=== PATIENT | male | born 1995 | race Caucasian/White ===

== ENCOUNTER 2016-11-13 15:49 | Emergency (ER) | payer BC, OTHER ==
[~2016-11-13] VITALS: Ht 175.3 cm; Wt 85.3 kg
[2016-11-13 15:54] VITALS: BP 146/82; PULSE 100; TEMP 36.7; O2SAT 98; Ht 175.3 cm; Wt 85.3 kg
[2016-11-13] MEDS ORDERED: NIAC500T11 PO (16:13)
[2016-11-13] MEDS ORDERED: BUSP-8 PO (16:17)
[2016-11-13] MEDS ORDERED: CYCL10TA6 PO (16:17)
--- NOTE | 2016-11-13 16:17 | EMERGENCY ROOM VISIT NOTE ---
ED Visit Note First contact with patient: 16:00 CHIEF COMPLAINT: Medication refill request HISTORY OF PRESENT ILLNESS: This 21-year-old male patient presents to the emergency department requesting a refill of Valium 5 mg twice a day. The patient reports a history of anxiety, and states 2 years ago, he was treated with Valium. He states he lost his health insurance, so was unable to afford the medication. Patient states he has been off of this medication for 2 years. He states then that time, he has just dealt with his anxiety. He states for the past 2 months, however he has been experiencing increased anxiety, causing painful spasms in the middle of his back. Patient states he recently got health insurance back, so presents to the emergency department to get back on his Valium. Patient sees Dr. Ford is his PCP and was treated by Dr. Nation for his psychiatric conditions. He states he has been experiencing a significant amount of stress, and reports recently being current on his mom's house and losing custody of his son. The patient is not suicidal or homicidal. He denies injury of his back. The patient denies any other complaints. REVIEW OF SYSTEMS: A 6 system review of systems was completed with positives and pertinent negatives listed in the HPI. ALLERGIES: Acetaminophen, Cefadroxil MEDICATIONS: None PMH: Anxiety, depression, ADHD, ADD SOCIAL HISTORY: Patient lives locally with his family. He admits to smoking one half pack cigarettes per day, he denies alcohol or drug use. PHYSICAL EXAM: VITALS: Vitals are noted on the nurse's note and reviewed by myself. Vital signs stable. GENERAL: 21-year-old male, in no acute distress, nondiaphoretic, well-developed well-nourished. SKIN: The skin was without rashes, erythema, edema, or bruising. HEAD: Normocephalic atraumatic. NECK: Supple without nuchal rigidity. No cervical spine tenderness. No paraspinous muscle tenderness. No lymphadenopathy. HEART: Regular rate and rhythm without murmurs gallops or rubs. LUNGS: Clear to auscultation bilaterally without wheezes, rales or rhonchi. MUSCULOSKELETAL: No muscle atrophy, erythema, or edema noted of the back. There no tenderness over the lumbar spinous processes. There is no tenderness over the paraspinous muscles in the low back. There is very minimal tenderness over the thoracic spine or paraspinous muscles. There are no palpable muscle spasms present. The patient is able to ambulate and move around without difficulty. Negative straight leg raise test. NEURO: Patient was alert and oriented to person place and time. Normal sensation to light and sharp touch. Deep tendon reflexes 2+ in the lower extremities. Dorsalis pedis pulse 2+ bilaterally. Heel and toe walking is normal. EMERGENCY DEPARTMENT COURSE: The patient was seen and evaluated as above. I discussed with the patient proper treatment of chronic conditions. I discussed with him symptomatic treatment at this time, and patient is in agreement with treatment at this time. Pt. was discharged home in good condition. DIAGNOSIS: Anxiety, Muscle spasms DIFFERENTIAL DIAGNOSIS: musculoskeletal strain, panic attack, nephrolithiasis, and others. DISCHARGE INSTRUCTIONS & TREATMENT: Take buspirone as directed twice daily. You may use Flexeril as needed up to 3 times daily for muscle symptoms. He should not take this medication drive, as it may cause drowsiness. Be sure to follow up with your primary care provider and/or psychiatrist and 2- 3 days for further evaluation and management of your chronic condition. Return to the emergency department if you experience suicidal or homicidal ideations, the desire to hurt yourself, intractable muscle spasms, increased anxiety causing difficulty functioning, or other associated symptoms. Problem List Medical Problems: (1) Tachycardia Status: Chronic Current/Historical Medications Scheduled Buspirone Hcl (Buspirone Hcl), 1 TAB PO BID Niacin (Niacin), 500 MG PO BID Scheduled PRN Cyclobenzaprine Hcl (Flexeril), 10 MG PO TID PRN for Muscle Spasms Allergies Coded Allergies: Acetaminophen (Verified Allergy, Severe, Throat swelling, 11/13/16) Cefadroxil (Unverified Adverse Reaction, Unknown, UNKNOWN, 11/13/16) Vital Signs Date Time Temp Pulse Resp B/P (MAP) Pulse Ox O2 Delivery O2 Flow Rate FiO2 11/13/16 15:54 36.7 100 18 146/82 98 Room Air Departure Information Impression Primary Impression: Anxiety Additional Impression: Muscle spasm Dispostion Home / Self-Care Condition GOOD Prescriptions Cyclobenzaprine Hcl (FLEXERIL) 10 Mg Tab 10 MG PO TID Y for Muscle Spasms, #15 TAB Prov: Theodora Jaimes, DANIELE 11/13/16 Buspirone Hcl (BUSPIRONE HCL) 10 Mg Tab 1 TAB PO BID for 30 Days, #60 TAB Prov: Theodora Jaimes, DANIELE 11/13/16 Referrals No Doctor, Assigned (PCP) Patient Instructions Anxiety Disorder, My [facility] Additional Instructions Take buspirone as directed twice daily. You may use Flexeril as needed up to 3 times daily for muscle symptoms. He should not take this medication drive, as it may cause drowsiness. Be sure to follow up with your primary care provider and/or psychiatrist and 2- 3 days for further evaluation and management of your chronic condition. Return to the emergency department if you experience suicidal or homicidal ideations, the desire to hurt yourself, intractable muscle spasms, increased anxiety causing difficulty functioning, or other associated symptoms. Problem Qualifiers
== END 2016-11-13 16:28 | disposition home or self-care (01) ==
LOC: C.EDB 15:50 → C.EDD 16:28
DX: F41.9 Anxiety disorder, unspecified (principal); M62.838 Other muscle spasm; F90.9 Attention-deficit hyperactivity disorder, unspecified type; F32.9 Major depressive disorder, single episode, unspecified; F17.200 Nicotine dependence, unspecified, uncomplicated

== ENCOUNTER 2016-12-15 18:06 | Emergency (ER) | payer OTHER ==
[~2016-12-15 18:06] MED LIST: NIAC500T11 PO
[2016-12-15 18:13] VITALS: Ht 172.7 cm
[2016-12-15 18:30] LABS: MANUAL MICROSCOPIC REQUIRED? NO; REVIEW REQ? NO; URINE APPEARANCE CLEAR (CLEAR); URINE BILIRUBIN NEG (NEG); URINE COLOR DK YELLOW; URINE NITRITE NEG (NEG); URINE SPECIFIC GRAVITY 1.025 (1.000-1.030); UROBILINOGEN NEG (NEG); ZZUR CULT IF INDIC CLEAN CATCH NO
[2016-12-15 18:42] LABS: BASO % 0.1 %; BASO ABS # 0.01 K/uL (0-0.2); COMPLETE YES; EOS % 0.3 %; HEMATOCRIT 42.9 % (42-52); IG% 0.2 %; LYMPH % 16.6 %; LYMPH ABS # 1.68 K/uL (1.2-3.4); MEAN CELL VOLUME 86.1 fL (80-100); MEAN CORPUSCULAR HEMOGLOBIN 29.5 pg (25-34); MEAN CORPUSCULAR HGB CONC 34.3 g/dl (32-36); MEAN PLATELET VOLUME 10.3 fL (7.4-10.4); MONO % 4.6 %; NEUT % 78.2 %; PLATELET COUNT 245 K/uL (130-400); RED BLOOD COUNT 4.98 M/uL (4.7-6.1); WHITE BLOOD COUNT 10.11 K/uL (4.8-10.8)
[2016-12-15 19:03] LABS: ALT/SGPT 24 U/L (12-78); AST/SGOT 12 U/L (15-37); BLOOD UREA NITROGEN 19 mg/dl (7-18); BUN/CREATININE RATIO 19.2 (10-20); CALCIUM 9.9 mg/dl (8.5-10.1); CARBON DIOXIDE 25 mmol/L (21-32); CHLORIDE 109 mmol/L (98-107); GLUCOSE 98 mg/dl (70-99); SODIUM 142 mmol/L (136-145)
[2016-12-15 19:13] LABS: BENZODIAZEPINE, URINE NEG (NEG); COCAINE,URINE NEG (NEG); PHENCYCLIDINE, URINE NEG (NEG)
[2016-12-15 19:14] LABS: ALB/GLOB RATIO 1.5 (0.9-2); ALKALINE PHOSPHATASE 36 U/L (45-117); THYROID STIMULATING HORMONE 0.619 uIu/ml (0.300-4.500)
[2016-12-15 19:16] LABS: ACETAMINOPHEN < 2 ug/ml (10-30)
--- NOTE | 2016-12-15 19:30 | EMERGENCY ROOM VISIT NOTE ---
History Report prepared by Denaibronald: Michael Molina Under the Supervision of: Dr. Robert Gay M.D. First contact with patient: 18:09 Chief Complaint: MENTAL HEALTH EVALUATION Stated Complaint: MENTAL HEALTH EVAL History of Present Illness The patient is a 21 year old male who presents to the Emergency Room by police with complaints of constant suicidal ideation beginning four days ago. He has a history of separation anxiety and depression, and states that he is currently in the process of getting prescribed medications. He states that he attempted to hurt himself two years ago, but has never tried to kill himself. Per lining caser, the police was called for the patient after he made suicidal statements to his mother. They state that the patient had a plan to kill himself by overdose. The patient states that he feels depressed because his child's mother left him for one of her ex-boyfriends last week. He denies any recent drug use. He has no weapons in his house. The patient states that he had no plan to hurt himself today. Source of History: patient Onset: Four days ago Quality: other (suicidal ideation) Timing: constant Review of Systems See HPI for pertinent positives & negatives. A total of 10 systems reviewed and were otherwise negative. Past Medical & Surgical Medical Problems: (1) Abrasion of hand, right (2) Contusion of right hand (3) Dental caries (4) Depression (5) Fever (6) Foot pain (7) Separation anxiety (8) Sore throat (9) Tachycardia Family History No pertinent family history stated. Social History Smoking Status: Unknown if Ever Smoked Alcohol Use: none Drug Use: none Marital Status: single Housing Status: lives with family Occupation Status: student Current/Historical Medications No Active Prescriptions or Reported Meds Allergies Coded Allergies: Acetaminophen (Verified Allergy, Severe, Throat swelling, 12/15/16) Cefadroxil (Unverified Adverse Reaction, Unknown, UNKNOWN, 12/15/16) Physical Exam Vital Signs Date Time Temp Pulse Resp B/P (MAP) Pulse Ox O2 Delivery O2 Flow Rate FiO2 12/16/16 01:09 36.6 98 18 124/79 96 12/15/16 22:01 98 18 124/79 96 Room Air 12/15/16 18:13 36.6 104 22 142/83 95 Room Air Physical Exam PSYCH: Admits depression. Admits suicidal statements, but denies suicidal plan. GENERAL: Patient is anxious appearing and periodically crying. HEENT: No acute trauma, normocephalic atraumatic, mucous membranes moist, no nasal congestion, no scleral icterus. NECK: No stridor, no adenopathy, no meningismus, trachea is midline. LUNGS: No dyspnea. Clear to auscultation and equal bilaterally. No wheeze, no rhonchi. HEART: Regular rate and rhythm. No murmurs, rubs, gallops appreciated. ABDOMEN: Soft, nontender, bowel sounds positive, no masses appreciated, no peritonitis. BACK: No midline tenderness, no CVA tenderness EXTREMITIES: Normal motion all extremities, no cyanosis, no edema. NEUROLOGIC: Alert and oriented, no acute motor or sensory deficits, no focal weakness, cranial nerves grossly intact. SKIN: No rash, no jaundice, no diaphoresis. Medical Decision & Procedures Laboratory Results 12/15/16 18:28 Red Blood Count 4.98, Mean Corpuscular Volume 86.1, Mean Corpuscular Hemoglobin 29.5, Mean Corpuscular Hemoglobin Concent 34.3, Mean Platelet Volume 10.3, Neutrophils (%) (Auto) 78.2, Lymphocytes (%) (Auto) 16.6, Monocytes (%) (Auto) 4.6, Eosinophils (%) (Auto) 0.3, Basophils (%) (Auto) 0.1, Neutrophils # (Auto) 7.90, Lymphocytes # (Auto) 1.68, Monocytes # (Auto) 0.47, Eosinophils # (Auto) 0.03, Basophils # (Auto) 0.01 12/15/16 18:28 Test 12/15/16 18:10 12/15/16 18:28 Urine Color DK YELLOW Urine Appearance CLEAR (CLEAR) Urine pH 6.0 (4.5-7.5) Urine Specific [place] 1.025 (1.000-1.030) Urine Protein NEG (NEG) Urine Glucose (UA) NEG (NEG) Urine Ketones 1+ (NEG) Urine Occult Blood NEG (NEG) Urine Nitrite NEG (NEG) Urine Bilirubin NEG (NEG) Urine Urobilinogen NEG (NEG) Urine Leukocyte Esterase NEG (NEG) Urine WBC (Auto) 1-5 /hpf (0-5) Urine RBC (Auto) 0-4 /hpf (0-4) Urine Hyaline Casts (Auto) 1-5 /lpf (0-5) Urine Epithelial Cells (Auto) 5-10 /lpf (0-5) Urine Bacteria (Auto) NEG (NEG) Urine Opiates Screen POS (NEG) Urine Methadone, Qualitative NEG (NEG) Urine Barbiturates NEG (NEG) Urine Phencyclidine (PCP) Level NEG (NEG) Ur Amphetamine/Methamphetamine NEG (NEG) MDMA (Ecstasy) Screen NEG (NEG) Urine Benzodiazepines Screen NEG (NEG) Urine Cocaine Metabolite NEG (NEG) Urine Marijuana (THC) NEG (NEG) White Blood Count 10.11 K/uL (4.8-10.8) Red Blood Count 4.98 M/uL (4.7-6.1) Hemoglobin 14.7 g/dL (14.0-18.0) Hematocrit 42.9 % (42-52) Mean Corpuscular Volume 86.1 fL (80-100) Mean Corpuscular Hemoglobin 29.5 pg (25-34) Mean Corpuscular Hemoglobin Concent 34.3 g/dl (32-36) Platelet Count 245 K/uL (130-400) Mean Platelet Volume 10.3 fL (7.4-10.4) Neutrophils (%) (Auto) 78.2 % Lymphocytes (%) (Auto) 16.6 % Monocytes (%) (Auto) 4.6 % Eosinophils (%) (Auto) 0.3 % Basophils (%) (Auto) 0.1 % Neutrophils # (Auto) 7.90 K/uL (1.4-6.5) Lymphocytes # (Auto) 1.68 K/uL (1.2-3.4) Monocytes # (Auto) 0.47 K/uL (0.11-0.59) Eosinophils # (Auto) 0.03 K/uL (0-0.5) Basophils # (Auto) 0.01 K/uL (0-0.2) RDW Standard Deviation 36.6 fL (36.4-46.3) RDW Coefficient of Variation 11.6 % (11.5-14.5) Immature Granulocyte % (Auto) 0.2 % Immature Granulocyte # (Auto) 0.02 K/uL (0.00-0.02) Anion Gap 8.0 mmol/L (3-11) Estimated GFR () 124.1 Estimated GFR (Non- 107.1 BUN/Creatinine Ratio 19.2 (10-20) Calcium Level 9.9 mg/dl (8.5-10.1) Total Bilirubin 0.6 mg/dl (0.2-1) Aspartate Amino Transf (AST/SGOT) 12 U/L (15-37) Alanine Aminotransferase (ALT/SGPT) 24 U/L (12-78) Alkaline Phosphatase 36 U/L (45-117) Total Protein 7.9 gm/dl (6.4-8.2) Albumin 4.7 gm/dl (3.4-5.0) Globulin 3.2 gm/dl (2.5-4.0) Albumin/Globulin Ratio 1.5 (0.9-2) Thyroid Stimulating Hormone (TSH) 0.619 uIu/ml (0.300-4.500) Salicylates Level < 1.7 mg/dl (2.8-20) Acetaminophen Level < 2 ug/ml (10-30) Ethyl Alcohol mg/dL < 3.0 mg/dl (0-3) Laboratory results as reviewed by me. Medications Administered Medications (Trade) Dose Ordered Sig/Herbie Route Start Time Stop Time Status Last Admin Dose Admin Lorazepam (Ativan Tab) 1 mg NOW STAT SL 12/15/16 20:18 12/15/16 20:19 DC 12/15/16 20:23 1 MG ED Course 1811: The patient was evaluated in room A8. A complete history and physical exam was performed. 6: I reassessed the patient. He is anxiously pacing the room. He declines anything for anxiety. A 302 petitioning statement was signed by his mother, as she feels that the patient is an imminent risk to himself. 2018: I checked in on the patient. He would like something for anxiety. Ordered Ativan Tab 1 mg SL. 2229: The patient was signed out to Dr Bailey awaiting mental health placement. Medical Decision Differential: Mood Disorder, Overdose, Infectious, Electrolyte Abnormality, Cardiac, Hepatic, Endocrine, Toxicologic, Neurologic, amongst other pathologies entertained. 21 yr old male arrives with complaint of anxiety and depression after his girlfriend left him with another man. Making suicidal statements to his mother who per case management is very much concerned that he may kill himself. Medically clear, opioid positive, though he denies any knowledge why this was positive. Given ativan for his anxiety. Awaiting placement as he is willing to sign in on 201 voluntary admission. Signed out to Dr Bailey. Impression Primary Impression: Depression Additional Impressions: suicidal statements Acute anxiety Scribe Attestation The scribe's documentation has been prepared under my direction and personally reviewed by me in its entirety. I confirm that the note above accurately reflects all work, treatment, procedures, and medical decision making performed by me. Departure Information Dispostion Mental Health Acute Care Prescriptions No Active Prescriptions or Reported Meds Referrals No Doctor, Assigned (PCP) Patient Instructions [facility] Problem Qualifiers
[2016-12-15] MEDS ORDERED: LORAZEPAM 1 MG TAB SL STA (20:18)
--- NOTE | 2016-12-15 23:23 | EMERGENCY ROOM VISIT NOTE ---
ED Visit Note Case signed over to me pending disposition. Patient is under a 201 has suicidal ideation and depression. I've spoken with the crisis counselor the patient will be transferred to [place] for further psychiatric treatment Problem List Medical Problems: (1) Abrasion of hand, right Status: Resolved (2) Contusion of right hand Status: Resolved (3) Dental caries Status: Resolved (4) Depression Status: Chronic (5) Fever Status: Resolved (6) Foot pain Status: Resolved (7) Separation anxiety Status: Chronic (8) Sore throat Status: Resolved (9) Tachycardia Status: Chronic Current/Historical Medications No Active Prescriptions or Reported Meds Allergies Coded Allergies: Acetaminophen (Verified Allergy, Severe, Throat swelling, 12/15/16) Cefadroxil (Unverified Adverse Reaction, Unknown, UNKNOWN, 12/15/16) Vital Signs Date Time Temp Pulse Resp B/P (MAP) Pulse Ox O2 Delivery O2 Flow Rate FiO2 12/15/16 22:01 98 18 124/79 96 Room Air 12/15/16 18:13 36.6 104 22 142/83 95 Room Air Laboratory Results 12/15/16 18:28 Red Blood Count 4.98, Mean Corpuscular Volume 86.1, Mean Corpuscular Hemoglobin 29.5, Mean Corpuscular Hemoglobin Concent 34.3, Mean Platelet Volume 10.3, Neutrophils (%) (Auto) 78.2, Lymphocytes (%) (Auto) 16.6, Monocytes (%) (Auto) 4.6, Eosinophils (%) (Auto) 0.3, Basophils (%) (Auto) 0.1, Neutrophils # (Auto) 7.90, Lymphocytes # (Auto) 1.68, Monocytes # (Auto) 0.47, Eosinophils # (Auto) 0.03, Basophils # (Auto) 0.01 12/15/16 18:28 Test 12/15/16 18:10 12/15/16 18:28 Urine Color DK YELLOW Urine Appearance CLEAR (CLEAR) Urine pH 6.0 (4.5-7.5) Urine Specific [place] 1.025 (1.000-1.030) Urine Protein NEG (NEG) Urine Glucose (UA) NEG (NEG) Urine Ketones 1+ (NEG) Urine Occult Blood NEG (NEG) Urine Nitrite NEG (NEG) Urine Bilirubin NEG (NEG) Urine Urobilinogen NEG (NEG) Urine Leukocyte Esterase NEG (NEG) Urine WBC (Auto) 1-5 /hpf (0-5) Urine RBC (Auto) 0-4 /hpf (0-4) Urine Hyaline Casts (Auto) 1-5 /lpf (0-5) Urine Epithelial Cells (Auto) 5-10 /lpf (0-5) Urine Bacteria (Auto) NEG (NEG) Urine Opiates Screen POS (NEG) Urine Methadone, Qualitative NEG (NEG) Urine Barbiturates NEG (NEG) Urine Phencyclidine (PCP) Level NEG (NEG) Ur Amphetamine/Methamphetamine NEG (NEG) MDMA (Ecstasy) Screen NEG (NEG) Urine Benzodiazepines Screen NEG (NEG) Urine Cocaine Metabolite NEG (NEG) Urine Marijuana (THC) NEG (NEG) White Blood Count 10.11 K/uL (4.8-10.8) Red Blood Count 4.98 M/uL (4.7-6.1) Hemoglobin 14.7 g/dL (14.0-18.0) Hematocrit 42.9 % (42-52) Mean Corpuscular Volume 86.1 fL (80-100) Mean Corpuscular Hemoglobin 29.5 pg (25-34) Mean Corpuscular Hemoglobin Concent 34.3 g/dl (32-36) Platelet Count 245 K/uL (130-400) Mean Platelet Volume 10.3 fL (7.4-10.4) Neutrophils (%) (Auto) 78.2 % Lymphocytes (%) (Auto) 16.6 % Monocytes (%) (Auto) 4.6 % Eosinophils (%) (Auto) 0.3 % Basophils (%) (Auto) 0.1 % Neutrophils # (Auto) 7.90 K/uL (1.4-6.5) Lymphocytes # (Auto) 1.68 K/uL (1.2-3.4) Monocytes # (Auto) 0.47 K/uL (0.11-0.59) Eosinophils # (Auto) 0.03 K/uL (0-0.5) Basophils # (Auto) 0.01 K/uL (0-0.2) RDW Standard Deviation 36.6 fL (36.4-46.3) RDW Coefficient of Variation 11.6 % (11.5-14.5) Immature Granulocyte % (Auto) 0.2 % Immature Granulocyte # (Auto) 0.02 K/uL (0.00-0.02) Anion Gap 8.0 mmol/L (3-11) Estimated GFR () 124.1 Estimated GFR (Non- 107.1 BUN/Creatinine Ratio 19.2 (10-20) Calcium Level 9.9 mg/dl (8.5-10.1) Total Bilirubin 0.6 mg/dl (0.2-1) Aspartate Amino Transf (AST/SGOT) 12 U/L (15-37) Alanine Aminotransferase (ALT/SGPT) 24 U/L (12-78) Alkaline Phosphatase 36 U/L (45-117) Total Protein 7.9 gm/dl (6.4-8.2) Albumin 4.7 gm/dl (3.4-5.0) Globulin 3.2 gm/dl (2.5-4.0) Albumin/Globulin Ratio 1.5 (0.9-2) Thyroid Stimulating Hormone (TSH) 0.619 uIu/ml (0.300-4.500) Salicylates Level < 1.7 mg/dl (2.8-20) Acetaminophen Level < 2 ug/ml (10-30) Ethyl Alcohol mg/dL < 3.0 mg/dl (0-3) Medications Administered Medications (Trade) Dose Ordered Sig/Herbie Route Start Time Stop Time Status Last Admin Dose Admin Lorazepam (Ativan Tab) 1 mg NOW STAT SL 12/15/16 20:18 12/15/16 20:19 DC 12/15/16 20:23 1 MG Departure Information Impression Primary Impression: Depression Additional Impressions: Acute anxiety suicidal statements Dispostion Mental Health Acute Care Prescriptions No Active Prescriptions or Reported Meds Referrals No Doctor, Assigned (PCP) Patient Instructions [facility] Problem Qualifiers
[2016-12-16 01:09] VITALS: BP 124/79; PULSE 98; TEMP 36.6; O2SAT 96
[2016-12-18 15:13] LABS: COD UR NEGATIVE NG/ML (CUTOFF=50); HYDROCOD UR NEGATIVE NG/ML (CUTOFF=50); HYDROMOR UR NEGATIVE NG/ML (CUTOFF=50); MORPHINE UR 357 NG/ML (CUTOFF=50); NORHYDROCODONE CONF UR NEGATIVE NG/ML (CUTOFF=50); OXYMORPH UR NEGATIVE NG/ML (CUTOFF=50)
== END 2016-12-16 01:10 ==
LOC: C.EDA 18:07
DX: F32.9 Major depressive disorder, single episode, unspecified (principal); F41.9 Anxiety disorder, unspecified; R45.851 Suicidal ideations

== ENCOUNTER 2017-08-25 13:31 | Emergency (ER) | payer OTHER ==
[~2017-08-25] VITALS: Ht 172.7 cm; Wt 90.0 kg
[2017-08-25 13:50] VITALS: TEMP 36.8; Ht 172.7 cm; Wt 90.0 kg
[2017-08-25] MEDS ORDERED: HYDROCODONE/ACETAMIN 5/325MG TAB PO ONE (14:15)
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
[2017-08-25] MEDS ORDERED: KETO10TA PO (15:26)
[2017-08-25 15:37] VITALS: BP 133/78; PULSE 88; O2SAT 98
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
== END 2017-08-25 15:40 | disposition home or self-care (01) ==
LOC: C.EDB 13:34 → C.EDD 15:40
DX: M25.571 Pain in right ankle and joints of right foot (principal); M79.671 Pain in right foot; Y03.0XXA Assault by being hit or run over by motor vehicle, initial encounter; Z88.8 Allergy status to other drugs, medicaments and biological substances; Z72.0 Tobacco use

== ENCOUNTER 2017-08-27 03:44 | Emergency (ER) | payer OTHER ==
[~2017-08-27] VITALS: Ht 182.9 cm; Wt 99.8 kg
[~2017-08-27 03:44] MED LIST changes: +KETO10TA PO; -NIAC500T11 PO
[2017-08-27 03:47] VITALS: TEMP 36.8; Ht 182.9 cm; Wt 99.8 kg
[2017-08-27] MEDS ORDERED: DiphenhydrAMINE HCL 50 MG/ML VIAL IV STA (04:00)
[2017-08-27] MEDS ORDERED: METOCLOPRAMIDE HCL INJ 5 MG/ML 2 ML VIAL IV STA (04:00)
[2017-08-27] MEDS ORDERED: KETOROLAC TROMETHAMINE 30 MG/ML VIAL IV STA (04:00)
[2017-08-27 04:20] LABS: BASO % 0.1 %; BASO ABS # 0.01 K/uL (0-0.2); EOS % 1.3 %; EOS ABS # 0.12 K/uL (0-0.5); HEMATOCRIT 40.5 % (42-52); HEMOGLOBIN 14.3 g/dL (14.0-18.0); IG# 0.03 K/uL (0.00-0.02); LYMPH % 32.7 %; LYMPH ABS # 3.03 K/uL (1.2-3.4); MEAN CELL VOLUME 86.5 fL (80-100); MEAN CORPUSCULAR HEMOGLOBIN 30.6 pg (25-34); MEAN CORPUSCULAR HGB CONC 35.3 g/dl (32-36); MEAN PLATELET VOLUME 10.2 fL (7.4-10.4); MONO % 7.1 %; MONO ABS # 0.66 K/uL (0.11-0.59); NEUT % 58.5 %; NEUT ABS # 5.42 K/uL (1.4-6.5); PLATELET COUNT 225 K/uL (130-400); RED CELL DISTRIBUTION WIDTH CV 12.4 % (11.5-14.5); RED CELL DISTRIBUTION WIDTH SD 39.5 fL (36.4-46.3); WHITE BLOOD COUNT 9.27 K/uL (4.8-10.8)
[2017-08-27 04:37] LABS: CREATININE 1.06 mg/dl (0.60-1.40); POTASSIUM 3.8 mmol/L (3.5-5.1)
[2017-08-27] MEDS ORDERED: IBUP-1427 PO (05:06)
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
[2017-08-27 05:23] VITALS: BP 120/86; PULSE 90; O2SAT 98
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
== END 2017-08-27 05:24 | disposition home or self-care (01) ==
LOC: EDBD 03:44 → C.EDB 03:45
DX: M54.5 Low back pain (principal); M79.606 Pain in leg, unspecified; Z87.828 Personal history of other (healed) physical injury and trauma; F17.210 Nicotine dependence, cigarettes, uncomplicated